=== PATIENT | male | born 1990 | race Caucasian/White ===

== ENCOUNTER 2023-08-19 21:58 | Emergency (ER) | payer BC ==
[2023-08-19] MEDS: Hydrocortisone/Neomycin/Polymyxin B Otic Susp 10 ML Bottle EARLF ONE (23:37)
== END 2023-08-19 23:45 | disposition home or self-care (01) ==
LOC: DL.ED 21:58
DX: T16.2XXA Foreign body in left ear, initial encounter (principal); H60.502 Unspecified acute noninfective otitis externa, left ear; F17.210 Nicotine dependence, cigarettes, uncomplicated; Z88.0 Allergy status to penicillin; Z86.16 Personal history of COVID-19; W44.8XXA Other foreign body entering into or through a natural orifice, initial encounter
CPT/HCPCS: 99282; A9270